=== PATIENT | female | born 1975 | race Caucasian/White ===

== ENCOUNTER 2024-04-29 18:35 | Emergency (ER) | payer OTHER ==
[2024-04-29 19:05] VITALS: RESP 18; TEMP 98.4
--- NOTE | 2024-04-29 19:21 | XR ---
EXAMINATION TYPE: XR wrist complete RT DATE OF EXAM: 04/29/2024 CLINICAL HISTORY: Fall with pain TECHNIQUE: Frontal, lateral and oblique images of the right wrist are obtained. COMPARISON: None FINDINGS: There is acute minimally displaced avulsion type fracture from the ulnar aspect of the uln ar styloid. There is an acute comminuted displaced intra-articular fracture through the distal radial meta-epiphysis. Carpal joint spaces are maintained. Overlying soft tissues are unremarkable. IMPRESSION: As above. [facility], , 04/29/2024 7:19 PM
[2024-04-29] MEDS: LIDOCAINE 1% INJ 10MG/ML (20 ML MDV) SQ ONE (20:17)
[2024-04-29] MEDS: KETOROLAC 15 MG/ML 1 ML VIAL IM STA (20:18)
--- NOTE | 2024-04-29 20:57 | ED ---
General Adult HPI - General Chief complaint: Extremity Injury, Upper Stated complaint: R hand injury, fall Time Seen by Provider: 04/29/24 19:41 Source: patient Mode of arrival: ambulatory Limitations: physical limitation - History of Present Illness Initial comments: 48-year-old female presenting with chief complaint of right wrist injury. Patient was ice-skating when she had a slip and fall onto an outstretched hand. She has an obvious deformity to the right wrist. There is significant pain and swelling. No numbness or tingling. - Related Data Allergies Allergy/AdvReac Type Severity Reaction Status Date / Time No Known Allergies Allergy Verified 04/29/24 19:01 Review of Systems ROS Statement: Those systems with pertinent positive or pertinent negative responses have been documented in the HPI. ROS Other: All systems not noted in ROS Statement are negative. Past Medical History Past Medical History: No Reported History Past Surgical History: Ear Surgery, Tonsillectomy Additional Past Surgical History / Comment(s): Lasik Smoking Status: Never smoker Past Alcohol Use History: None Reported Past Drug Use History: None Reported General Exam Limitations: physical limitation General appearance: alert, in no apparent distress Head exam: Present: atraumatic, normocephalic, normal inspection Eye exam: Present: normal appearance, EOMI Neck exam: Present: normal inspection. Absent: meningismus Respiratory exam: Absent: respiratory distress Cardiovascular Exam: Present: regular rate Right Hand Wrist exam: Present: tenderness, swelling, deformity. Absent: normal inspection, full ROM Neurological exam: Present: oriented X3 Psychiatric exam: Present: normal affect, normal mood Skin exam: Present: warm, dry Course Vital Signs 04/29/24 04/29/24 19:02 21:20 Temperature 98.4 F Pulse Rate 89 90 Respiratory 18 18 Rate Blood Pressure 140/76 123/79 O2 Sat by Pulse 99 98 Oximetry Procedures - Nerve Block Consent Obtained: verbal consent Local Anesthetic Used: Other (Bupivacaine 0.25%) Amount of anesthesia used: 6 Side: right Nerve Blocks: hematoma block Procedure Successful: Yes Complications: none Patient Tolerated Procedure: well - Orthopedic Fracture Reduction Fracture #1 Consent Obtained: verbal consent Side: right Fracture Reduction Location: radius Analgesia: hematoma block Technique: direct manipulation Post Reduction X-rays Demonstrate: anatomical reduction Post-Reduction Neuro Exam: intact Post-Reduction Vascular Exam: intact Splint Applied: Yes Patient Tolerated Procedure: well - Orthopedic Splinting/Casting Injury #1 Side: right Upper Extremity Injury Location: wrist Upper Extremity Immobilizer: sugar tong splint Medical Decision Making - Medical Decision Making Was pt. sent in by a medical professional or institution (ORTIZ Mora, FACILITIES MAINTENANCE MANAGER, urgent care, hospital, or residential...) When possible be specific @ -No Did you speak to anyone other than the patient for history (EMS, parent, family, police, friend...)? What history was obtained from this source @ -No Did you review nursing and triage notes (agree or disagree)? Why? @ -I reviewed and agree with nursing and triage notes Were old charts reviewed (outside hosp., previous admission, EMS record, old EKG, old radiological studies, urgent care reports/EKG's, residential records)? Report findings @ -No old charts were reviewed Differential Diagnosis (chest pain, altered mental status, abdominal pain women, abdominal pain men, vaginal bleeding, weakness, fever, dyspnea, syncope, headache, dizziness, GI bleed, back pain, seizure, CVA, palpatations, mental health, musculoskeletal)? @ -Differential includes fracture, dislocation, sprain, strain, vomiting all- inclusive list. EKG interpreted by me (3pts min.). @ -As above X-rays interpreted by me (1pt min.). @ -X-ray shows acute minimally displaced avulsion type fracture from the ulnar aspect of the ulnar styloid. There is acute comminuted displaced intra- articular fracture through the distal radial meta-epiphysis. Carpal joint spaces are maintained. Overlying soft tissues are unremarkable Postreduction x-ray shows improved alignment CT interpreted by me (1pt min.). @ -None done U/S interpreted by me (1pt. min.). @ -None done What testing was considered but not performed or refused? (CT, X-rays, U/S, labs)? Why? @ -None What meds were considered but not given or refused? Why? @ -None Did you discuss the management of the patient with other professionals (professionals i.e. ORTIZ Mora, FACILITIES MAINTENANCE MANAGER, lab, RT, psych nurse, hospital social worker, shed boss, teacher, business banking officer, dependency case manager)? Give summary @ -No Was smoking cessation discussed for >3mins.? @ -No Was critical care preformed (if so, how long)? @ -No Were there social determinants of health that impacted care today? How? (Homelessness, low income, unemployed, alcoholism, drug addiction, transportation, low edu. Level, literacy, decrease access to med. care, senior living, rehab)? @ -No Was there de-escalation of care discussed even if they declined (Discuss DNR or withdrawal of care, Hospice)? DNR status @ -No What co-morbidities impacted this encounter? (DM, HTN, Smoking, COPD, CAD, Cancer, CVA, ARF, Chemo, Hep., AIDS, mental health diagnosis, sleep apnea, morbid obesity)? @ -None Was patient admitted / discharged? Hospital course, mention meds given and route, prescriptions, significant lab abnormalities, going to OR and other pertinent info. @ -48-year-old female presenting with chief complaint of right wrist injury. She fell while ice-skating. X-rays positive for acute comminuted displaced fracture of the radius and avulsion fracture of the ulnar styloid process. I offered the patient hematoma block versus procedural sedation. Shared decision making is utilized, patient would prefer hematoma block. Hematoma block is performed. My attending Dr. Ortiz assist me in reducing the fracture. Postreduction x-ray shows improved alignment. Patient is neurovascularly intact. Sugar-tong splint is applied. Patient is educated on today's findings and management plan. [place], she is given the contact information for local orthopedic doctor, instructed that she needs to follow-up with an orthopedic doctor and given advice on how to find 1 near where she [address]. Follow-up with PCP. Report back to ER with any new or worsening symptoms. Discussed return parameters and answered all questions. Patient conveyed verbal understanding and agreed to the plan. I discussed this case in detail with my attending Dr. Ortiz Undiagnosed new problem with uncertain prognosis? @ -No Drug Therapy requiring intensive monitoring for toxicity (Heparin, Nitro, Insulin, Cardizem)? @ -No Were any procedures done? @ -Hematoma block with reduction of fracture and placement of sugar-tong splint Diagnosis/symptom? @ -Distal radius fracture Acute, or Chronic, or Acute on Chronic? @ -Acute Uncomplicated (without systemic symptoms) or Complicated (systemic symptoms)? @ -uncomplicated Side effects of treatment? @ -No Exacerbation, Progression, or Severe Exacerbation? @ -No Poses a threat to life or bodily function? How? (Chest pain, [place], [place], pneumonia, PE, COPD, DKA, ARF, appy, cholecystitis, CVA, Diverticulitis, Homicidal, Suicidal, threat to staff... and all critical care pts) @ -Threat to fully regaining function if patient does not adhere to proper follow-up Disposition Clinical Impression: Distal radius fracture Disposition: HOME SELF-CARE Condition: Good Instructions (If sedation given, give patient instructions): Wrist Fracture in Adults (ED) Additional Instructions: You need to follow-up with an orthopedic surgeon. I have listed the contact info for our local orthopedic surgeon, you can call around or reach out to your doctor to find an orthopedic surgeon in your area. Report back to ER with any new or worsening symptoms, including but not limited to numbness, tingling, discoloration of the fingers, significant swelling of the fingers. Take Motrin and Tylenol as needed for pain control. Keep your splint on until cleared by orthopedics. Is patient prescribed a controlled substance at d/c from ED?: No Referrals: Nonstaff,Physician [Primary Care Provider] - 1-2 days Saturnino Juárez DO [Doctor of Osteopathic Medicine] - 1-2 days Time of Disposition: 20:57
--- NOTE | 2024-04-29 20:58 | XR ---
EXAMINATION TYPE: XR wrist limited RT DATE OF EXAM: 04/29/2024 CLINICAL HISTORY: Post Reduction TECHNIQUE: Frontal and lateral images of the right wrist are obtained. COMPARISON: Right wrist x-ray earlier today. FINDINGS: Acute comminuted intra-articular fracture distal radial meta-epiphysis shows improved align ment after reduction. Acute avulsion type fracture through ulnar aspect of the ulnar styloid redemons trated. No new fractures are seen. IMPRESSION: As above. [facility], , 04/29/2024 8:55 PM
[2024-04-29] MEDS: ACET/COD 300 MG/30 MG STARTER PACK 6 TAB BTL PO STA (21:12)
[2024-04-29 21:22] VITALS: BP 123/79; PULSE 90
== END 2024-04-29 21:22 | disposition home or self-care (01) ==
LOC: EC 18:35
DX: S52.501A Unspecified fracture of the lower end of right radius, initial encounter for closed fracture (principal); W00.9XXA Unspecified fall due to ice and snow, initial encounter
CPT/HCPCS: 73100; 73110; 99283; 96372; 25605; J2003; J1885